=== PATIENT | female | born 1950 | race Caucasian/White ===

== ENCOUNTER 2019-08-24 10:11 | Emergency (ER) | payer OTHER, MEDICAID ==
[~2019-08-24] VITALS: Ht 162.6 cm; Wt 67.6 kg
--- NOTE | 2019-08-24 10:17 | NUR ---
PT WHEELCHAIRED TO BED 3
[2019-08-24 10:21] VITALS: BP 99/60
--- NOTE | 2019-08-24 10:26 | NUR ---
Note undone in EDM - 08/24/19 at 1028 by [email or web address] 69 y/o F bib caregiver. Per caregiver pt was being assisted in shower and pt bumbed head on metal bar in shower. Indentation in middle of forehead noted. Denies LOC. Denies N/V. A&O x1. Vital Signs Stable. Pt at baseline. Caregiver remains at bedside. Allergies: NKA Med hx: CP, intellectual disability, hearing loss, seizures, anemia
--- NOTE | 2019-08-24 11:19 | NUR ---
Dr. Martinez evaluating pt at bedside.
[2019-08-24 11:43] VITALS: BP 100/63
--- NOTE | 2019-08-24 11:43 | NUR ---
Patient discharged with v/s stable. Written and verbal after care instructions given and explained. Patient alert, oriented and verbalized understanding of instructions. Wheel Chair Assisted with by caregiver. All questions addressed prior to discharge. ID band removed. Patient advised to follow up with PMD. Rx of MOTRIN given. Patient educated on indication of medication including possible reaction and side effects. Opportunity to ask questions provided and answered.
== END 2019-08-24 11:43 | disposition home or self-care (01) ==
LOC: MED 10:11
DX: S00.81XA Abrasion of other part of head, initial encounter (principal); W22.8XXA Striking against or struck by other objects, initial encounter; Y92.091 Bathroom in other non-institutional residence as the place of occurrence of the external cause; Y93.89 Activity, other specified; Y99.8 Other external cause status
CPT/HCPCS: 99282

== ENCOUNTER 2021-01-04 19:03 | Inpatient (IN) | payer OTHER, MEDICAID ==
[~2021-01-04] VITALS: Ht 149.9 cm; Wt 64.4 kg
[2021-01-04 19:17] VITALS: BP 142/103
--- NOTE | 2021-01-04 19:17 | NUR ---
TO BED VIA W/C
--- NOTE | 2021-01-04 19:17 | NUR ---
70 Y/O FEMALE PATIENT PRESENTS TO ED WITH CAREGIVER C/O APPETITE CHANGES. PER CAREGIVER, "PT IS USUALLY FEEDING GOOD, BUT SHE HAS NOT BEEN EATING SINCE LUNCH TODAY. SHE HAS APPETITE CHANGES AND WAS A LITTLE NAUSEATED". DENIES V/D; SKIN IS PINK/WARM/DRY; AAOX4 WITH EVEN AND STEADY GAIT; LUNGS CLEAR BL; HR EVEN AND REGULAR; PT DENIES ANY FEVER, CP, SOB, OR COUGH AT THIS TIME; PATIENT STATES PAIN OF 0/10 AT THIS TIME; VSS; PATIENT POSITIONED FOR COMFORT; HOB ELEVATED; BEDRAILS UP X2; BED DOWN. ER MD MADE AWARE OF PT STATUS. NKA PMH: PROFOUND INTELLECTUAL DISABILITY, OSTEOPOROSIS, ANEMIA, CEREBRAL PALSY
[2021-01-04] MEDS ORDERED: NACL 0.9% 1,000 ML IV SCH (19:30)
[2021-01-04] MEDS ORDERED: ONDANSETRON 4 MG/2 ML VIAL IVP ONE (19:30)
[2021-01-04] MEDS ORDERED: cefTRIAXone 1,000 MG in DEXT 5% MINI-BAG PLUS 50 ML IV ONE (19:30)
[2021-01-04] MEDS ORDERED: cefTRIAXone 1,000 MG VIAL ONE (19:36)
--- NOTE | 2021-01-04 20:35 | NUR ---
OBTAINED URINE SAMPLE VIA STRAIGHT CATHETER, AND SENT TO LAB, HANDED TO CPT CHRISTY
[2021-01-04 20:40] LABS: BASOPHILS # (AUTO) 0.1 K/uL (0.00-0.22); BASOPHILS % (AUTO) 0.4 % (0.0-2.0); HEMATOCRIT 47.1 % (36-48); HEMOGLOBIN 15.3 g/dL (12.0-16.0); LYMPHOCYTES # (AUTO) 0.9 K/uL (2.5-16.5); LYMPHOCYTES % (AUTO) 4.7 % (20.5-51.1); MEAN CORPUSCULAR HEMOGLOBIN 27 pg (27-31); MEAN CORPUSCULAR HGB CONC 32 g/dL (33-37); MONOCYTES # (AUTO) 0.8 K/uL (0.8-1.0); MONOCYTES % (AUTO) 4.4 % (1.7-9.3); PLATELET COUNT (AUTO) 235 K/uL (140-450); RED BLOOD CELL COUNT(AUTO) 5.75 MIL/uL (4.20-5.40); RED CELL DISTRIBUTION WIDTH 14.8 % (11.6-13.7); WHITE BLOOD COUNT (AUTO) 18.8 K/uL (4.8-10.8)
--- NOTE | 2021-01-04 20:42 | NUR ---
EKG PERFORMED AT BEDSIDE. EKG READS SINUS TACHYCARDIA @ 100
[2021-01-04 20:47] LABS: ALBUMIN 4.1 g/dL (3.4-5.0); ANION GAP 14.1 (8-16); CARBON DIOXIDE 26.2 mmol/L (21-32); CREATININE 0.7 mg/dL (0.6-1.3); POTASSIUM 4.3 mmol/L (3.5-5.1); TOTAL BILIRUBIN 0.4 mg/dL (0.0-1.0)
[2021-01-04 20:50] LABS: NEUTROPHILS % (AUTO) 90.5 % (42.2-75.2)
--- NOTE | 2021-01-04 20:59 | NUR ---
RECEIVED A CALL ANGELITO SLATER. REGARDING CRITICAL VALUES: LACTIC ACID: 2.4 TROPONIN: 0.075
[2021-01-04 21:28] LABS: APPEARANCE,URINE CLEAR (CLEAR); BILIRUBIN,URINE NEGATIVE (NEGATIVE); BLOOD, URINE TRACE-I (NEGATIVE); COLOR,URINE YELLOW (YELLOW); LEUKOCYTE ESTERASE ,URINE 1+ (NEGATIVE); NITRITE, URINE POSITIVE (NEGATIVE); UGLUCOSE NEGATIVE (NEGATIVE)
[2021-01-04] MEDS ORDERED: FISH100053 PO (21:39)
[2021-01-04] MEDS ORDERED: BISA-213 RC (21:39)
[2021-01-04] MEDS ORDERED: CHLO100S54 (21:39)
[2021-01-04] MEDS ORDERED: OSC500 PO (21:39)
[2021-01-04] MEDS ORDERED: FOS70 PO (21:39)
[2021-01-04] MEDS ORDERED: MAGN400S60 PO (21:39)
[2021-01-04] MEDS ORDERED: ACET325C8 PO (21:39)
[2021-01-04] MEDS ORDERED: MULT-2253 PO (21:39)
[2021-01-04] MEDS ORDERED: EPIN0.154 IM/IV/SUBQ (21:39)
[2021-01-04] MEDS ORDERED: CARB15DR61 OT (21:39)
[2021-01-04] MEDS ORDERED: NA P133N16 RC (21:39)
--- NOTE | 2021-01-04 21:40 | NUR ---
Patient will be admitted to care of DR. ROSS. Admited to TELEMMETRY. Will go to room 112B. Belongings list completed. Report to SYLVIE KARIMI.
[2021-01-04 21:41] LABS: RBC,URINE 0-5 /HPF (0-5)
[2021-01-04 21:45] VITALS: BP 149/86
--- NOTE | 2021-01-04 21:45 | NUR ---
ADMITTED THE PATIENT FROM ER VIA GURNEY. PATIENT AWAKE AND ALERT, ORIENTED TO SELF. PATIENT HAS CEREBRAL PALSY, NON VERBAL. PATIENT NOT IN ANY DISTRESS. CONNECTED THE PATIENT ON AUTO GARAGE MECHANIC SHOWING SINUS TACHYCARDIA ON TELE MONITOR, HR-109. FALL PRECAUTION IMPLEMENTED. BED IN LOW POSITION, SIDE RAILS UP X2, BED ALARM ON. CALL LIGHT WITHIN REACH. WILL CONTINUE POC AND MONITORING.
[2021-01-04] MEDS ORDERED: NON-FORMULARY ITEM (Acetaminophen (Tylenol) 650 MG) PO SCH (23:55)
[2021-01-04] MEDS ORDERED: SODIUM PHOSPHATE 118 ML ENEM RC SCH (23:55)
[2021-01-04] MEDS ORDERED: ACETAMINOPHEN 325 MG TAB PO PRN (23:55)
[2021-01-04] MEDS ORDERED: HYDROcodone/APAP 5/325 MG 1 TAB TAB PO PRN (23:55)
[2021-01-04] MEDS ORDERED: EPINEPHRINE 0.3 MG IM/IV/SUBQ SCH (23:55)
[2021-01-04] MEDS ORDERED: bisacodyL 10 MG SUPP RC SCH (23:55)
[2021-01-04] MEDS ORDERED: ONDANSETRON 4 MG/2 ML VIAL IVP PRN (23:55)
[2021-01-04] MEDS ORDERED: MAGNESIUM HYDROXIDE 2400 MG/30 ML UDC PO SCH (23:55)
[2021-01-04] MEDS ORDERED: LORazepam 2 MG/ML VIAL IVP PRN (23:55)
[2021-01-05] VITALS: BP 137/65
--- NOTE | 2021-01-05 00:55 | NUR ---
PATIENT LACTIC ACID IS 2.8. NOTIFIED DR ROSS OBSTETRICS GYN PHYSICIAN MD AND AWARE. NO FURTHER ORDER GIVEN.
--- NOTE | 2021-01-05 02:00 | NUR ---
PATIENT ASLEEP. VISIBLE CHEST RISE AND FALL NOTED. NOT IN ANY DISTRESS. SAFETY MEASURES IN PLACED.
[2021-01-05 04:00] VITALS: BP 139/71
--- NOTE | 2021-01-05 04:00 | NUR ---
PATIENT VITAL SIGNS STABLE, AFEBRILE, SATING 97% ON RA. NO COMPLAIN OF PAIN AT THIS TIME. SR ON EXTRUSION UTILITY WORKER, HR-95. CALL LIGHT WITHIN REACH.
[2021-01-05 04:46] LABS: CREATINE KINASE MB 1.4 ng/mL (0-3.6)
[2021-01-05 05:10] LABS: BASOPHILS # (AUTO) 0.1 K/uL (0.00-0.22); BASOPHILS % (AUTO) 0.5 % (0.0-2.0); HEMATOCRIT 44.7 % (36-48); HEMOGLOBIN 14.7 g/dL (12.0-16.0); LYMPHOCYTES # (AUTO) 0.7 K/uL (2.5-16.5); MEAN CORPUSCULAR HEMOGLOBIN 27 pg (27-31); MEAN CORPUSCULAR HGB CONC 33 g/dL (33-37); MONOCYTES # (AUTO) 1.4 K/uL (0.8-1.0); MONOCYTES % (AUTO) 8.5 % (1.7-9.3); NEUTROPHILS # (AUTO) 14.1 K/uL (1.8-7.7); PLATELET COUNT (AUTO) 230 K/uL (140-450); RED BLOOD CELL COUNT(AUTO) 5.45 MIL/uL (4.20-5.40); RED CELL DISTRIBUTION WIDTH 14.7 % (11.6-13.7); WHITE BLOOD COUNT (AUTO) 16.3 K/uL (4.8-10.8)
[2021-01-05 05:18] LABS: ANION GAP 13.2 (8-16); CARBON DIOXIDE 25.9 mmol/L (21-32); CREATININE 0.6 mg/dL (0.6-1.3); POTASSIUM 4.1 mmol/L (3.5-5.1)
[2021-01-05 05:33] LABS: CREATINE KINASE MB 1.4 ng/mL (0-3.6)
[2021-01-05 05:52] LABS: LYMPHOCYTES % (AUTO) 4.6 % (20.5-51.1); NEUTROPHILS % (AUTO) 86.4 % (42.2-75.2)
--- NOTE | 2021-01-05 06:28 | NUR ---
PATIENT STABLE. NO ACUTE EVENT THROUGHOUT THE NIGHT. NO COMPLAIN AT THIS TIME. NOT IN ANY DISTRESS. ALL NEEDS ATTENDED. WILL ENDORSE THE PATIENT TO THE ONCOMING RN FOR CONTINUITY OF CARE. CALL LIGHT WITHIN REACH.
--- NOTE | 2021-01-05 07:16 | NUR ---
ENDORSED PATIENT TO DAY SYLVIE OLSON FOR CONTINUITY OF CARE. PATIENT STABLE. SIGNING OFF.
--- NOTE | 2021-01-05 07:21 | NUR ---
RECEIVED BEDSIDE REPORT FROM NIGHTSHIFT NURSE. PT RESTING IN BED. ABLE TO MAKE SOME NEEDS KNOWN. RESPIRATIONS EVEN AND UNLABORED WITH NO SOB OR RESPIRATORY DISTRESS. SKIN WARM AND DRY TO TOUCH. SAFETY MEASURES IN PLACE. WILL CONTINUE TO MONITOR
[2021-01-05 08:00] VITALS: BP 114/52
[2021-01-05] MEDS: CARBAMIDE PEROXIDE 6.5% OT 15 ML BTL OT SCH (08:21)
[2021-01-05] MEDS: CALCIUM CARBONATE 500 MG TAB PO SCH ×2 (08:22→22:37)
[2021-01-05] MEDS: MULTIVITAMIN 1 TAB PO SCH (08:22)
--- NOTE | 2021-01-05 08:35 | NUR ---
ADMINISTERED SCHED MED PRESCRIBED PER MD ORDER. PT TOLERATED WELL. SAFETY MEASURES IN PLACE. WILL CONTINUE TO MONITOR
[2021-01-05] MEDS ORDERED: OMEGA PO SCH (09:00)
[2021-01-05] MEDS ORDERED: NON-FORMULARY ITEM (Multivitamin (Multi-Vitamin Daily) 1 EACH) PO SCH (09:00)
[2021-01-05] MEDS ORDERED: FATTY ACIDS PO SCH (09:00)
[2021-01-05] MEDS ORDERED: FISH OIL PO SCH (09:00)
[2021-01-05] MEDS: NACL 0.9% 1,000 ML IV SCH (09:35)
--- NOTE | 2021-01-05 09:35 | NUR ---
ADMINISTERED SCHED IVF PRESCRIBED PER MD ORDER. PT TOLERATED WELL. SAFETY MEASURES IN PLACE. WILL CONTINUE TO MONITOR
--- NOTE | 2021-01-05 10:15 | NUR ---
RECEIVED CALL FROM [facility] [phone] AND WANTED AN UPDATE ON PATIENT. UPDATE GIVEN. SAFETY MEASURES IN PLACE. WILL CONTINUE TO MONITOR
[2021-01-05 12:00] VITALS: BP 114/43
--- NOTE | 2021-01-05 12:04 | NUR ---
VITAL SIGNS OBTAINED, PT IS STABLE. NO SIGNS OF DISTRESS AT THIS TIME. SAFETY MEASURES IN PLACE. WILL CONTINUE TO MONITOR
--- NOTE | 2021-01-05 14:15 | NUR ---
PLASTIC BOAT BUFFER FROM [employer] [facility] IS HERE TO SEE PATIENT. CALLI [phone]. VISITING PATIENT AT BEDSIDE. PER CALLI, THE PATIENT HAS NURSE AZAEL WHO IS PT PRIMARY NURSE AND TO CALL HER PRIOR TO DC [phone]. SAFETY MEASURES IN PLACE, WILL CONTINUE TO MONITOR
[2021-01-05] MEDS ORDERED: MAGNESIUM HYDROXIDE 2400 MG/30 ML UDC PO PRN (14:45)
[2021-01-05] MEDS ORDERED: bisacodyL 10 MG SUPP RC PRN (14:45)
[2021-01-05] MEDS ORDERED: SODIUM PHOSPHATE 118 ML ENEM RC PRN (14:45)
[2021-01-05 16:00] VITALS: BP 97/45
--- NOTE | 2021-01-05 16:04 | NUR ---
ASSISTED ESTIMATOR WITH TURNING AND REPOSITIONING PATIENT. PT TOLERATED FAIRLY. SAFETY MEASURES IN PLACE. WILL CONTINUE TO MONITOR
[2021-01-05] MEDS: FAMOTIDINE 20 MG/2 ML VIAL IV SCH (17:50)
--- NOTE | 2021-01-05 18:15 | NUR ---
FED PATIENT DINNER. PT TOLERATED WELL. PATIENT ATE 100% OF DINNER. NO DISTRESS AT THIS TIME. WILL CONTINUE TO MONITOR
--- NOTE | 2021-01-05 19:25 | NUR ---
ENDORSED TO NIGHTSHIFT NURSE AT BEDSIDE FOR CONTINUITY OF CARE.
--- NOTE | 2021-01-05 19:26 | NUR ---
RECEIVED BEDSIDE ENDORSEMENT FROM AM SHIFT RN. PATIENT IS AOX1, HX OF DEV'T. DELAYED, ON ROOM AIR, NO DISTRESS, IVF INFUSING, SOMEONE IS IN THE PT ROOM DOING SOME TEST AT THIS TIME, SAFETY MEASURES IN PLACE, PLAN OF CARE DISCUSSED, CALL LIGHT WITHIN REACH, WILL MONITOR.
[2021-01-05 20:00] VITALS: BP 96/48
[2021-01-05] MEDS ORDERED: CHLORHEXIDINE GLUCONATE SCH (21:00)
[2021-01-06] VITALS: BP 98/50
[2021-01-06] MEDS: NACL 0.9% 1,000 ML IV SCH ×2 (03:25→18:23)
[2021-01-06 04:00] VITALS: BP 100/56
[2021-01-06 05:16] LABS: BASOPHILS # (AUTO) 0.1 K/uL (0.00-0.22); BASOPHILS % (AUTO) 0.6 % (0.0-2.0); EOSINOPHILS # (AUTO) 0.1 K/uL (0-0.4); EOSINOPHILS % (AUTO) 1.5 % (0.0-4.0); HEMATOCRIT 38.2 % (36-48); HEMOGLOBIN 12.3 g/dL (12.0-16.0); LYMPHOCYTES # (AUTO) 1.7 K/uL (2.5-16.5); LYMPHOCYTES % (AUTO) 17.5 % (20.5-51.1); MEAN CORPUSCULAR HEMOGLOBIN 27 pg (27-31); MEAN CORPUSCULAR HGB CONC 32 g/dL (33-37); MEAN CORPUSCULAR VOLUME 83.2 fL (80-94); MONOCYTES % (AUTO) 10.6 % (1.7-9.3); NEUTROPHILS # (AUTO) 6.7 K/uL (1.8-7.7); NEUTROPHILS % (AUTO) 69.8 % (42.2-75.2); PLATELET COUNT (AUTO) 199 K/uL (140-450); RED BLOOD CELL COUNT(AUTO) 4.59 MIL/uL (4.20-5.40); RED CELL DISTRIBUTION WIDTH 14.6 % (11.6-13.7); WHITE BLOOD COUNT (AUTO) 9.7 K/uL (4.8-10.8)
[2021-01-06 05:33] LABS: ANION GAP 10.7 (8-16); CARBON DIOXIDE 27.2 mmol/L (21-32); CREATININE 0.5 mg/dL (0.6-1.3); POTASSIUM 3.9 mmol/L (3.5-5.1)
--- NOTE | 2021-01-06 07:26 | NUR ---
PATIENT HAS BEEN SCREENED AND CATEGORIZED LOW NUTRITION RISK. PATIENT WILL BE SEEN WITHIN 7 DAYS OF ADMISSION. 01/12/21 DAVE MENSAH MS, RDN
--- NOTE | 2021-01-06 07:30 | NUR ---
NO ACUTE EVENTS OVERNIGHT. NO SOB, NO DISTRESS. CALL LIGHT WITHIN REACH. KEPT COMFORTABLE.
--- NOTE | 2021-01-06 07:55 | NUR ---
PATIENT STABLE, KEPT COMFORTABLE, BEDSIDE ENDORSEMENT GIVEN TO AM SHIFT RN FOR CONTINUITY OF CARE.
[2021-01-06 08:00] VITALS: BP 104/55
[2021-01-06] MEDS: MULTIVITAMIN 1 TAB PO SCH (09:23)
[2021-01-06] MEDS: CALCIUM CARBONATE 500 MG TAB PO SCH ×2 (09:24→20:58)
--- NOTE | 2021-01-06 09:26 | NUR ---
ADMINISTERED AM MEDS WITH APPLE SAUCE, PATIENT TOLERATED WELL. AWAITING FOR PHARMACY TO DELIVER THE EYE DROP, [facility] NOTIFIED. PATIENT AWAKE AND RESTING ON BED. FLACC 0. RESPIRATION EVEN AND UNLABORED ON 4 LPM VIA NASAL CANNULA. NO SIGNS OF ACUTE DISTRESS NOTED. SAFETY MEASURES IN PLACE. BED IN LOW POSITION, AND CALL LIGHT WITHIN REACH, FALL RISK PROTOCOL IN PLACE.
[2021-01-06] MEDS: CARBAMIDE PEROXIDE 6.5% OT 15 ML BTL OT SCH (10:08)
--- NOTE | 2021-01-06 11:15 | NUR ---
PATIENT IS RESTING ON BED, AROUSABLE TO VOICE, RESPIRATION EVEN, UNLABORED ON RA. NO SIGNS OF ACUTE DISTRESS NOTED. SAFETY MEASURES IN PLACE.
[2021-01-06 12:00] VITALS: BP 116/59
--- NOTE | 2021-01-06 13:17 | NUR ---
PATIENT AWAKE AND RESTING ON BED. FLACC 0. NO SIGNS OF ACUTE DISTRESS NOTED. SAFETY MEASURES IN PLACE.
[2021-01-06 16:00] VITALS: BP 118/71
[2021-01-06] MEDS: FAMOTIDINE 20 MG/2 ML VIAL IV SCH (18:23)
--- NOTE | 2021-01-06 18:23 | NUR ---
SCHEDULED MED ADMINISTERED. PIT SHOVELER IS AT BEDSIDE ASSISTING PATIENT TO EAT DINNER. NO SIGNS OF ACUTE DISTRESS NOTED. SAFETY MEASURES IN PLACE.
--- NOTE | 2021-01-06 19:30 | NUR ---
ENDORSED PATIENT TO ROOF TRUSS MACHINE TENDER NURSE KATHERIN FOR CONTINUITY OF CARE. PATIENT IS RESTING ON BED. PATIENT IS IN STABLE CONDITION.
--- NOTE | 2021-01-06 19:31 | NUR ---
RECEIVED BEDSIDE ENDORSEMENT FROM AM RN, PATIENT WAS AAO X1 TO NAME, PT ON ROOM AIR, NO SOB, FLACC 0, IV FLUIDS INFUSING ON LFA, PATENT/INTACT, SAFETY MEASURES IMPLEMENTED, PLAN OF CARE DISCUSSED, WILL CONTINUE TO MONITOR AND CALL LIGHT WITHIN REACH.
[2021-01-06 20:00] VITALS: BP 98/67
--- NOTE | 2021-01-06 21:02 | NUR ---
PATIENT IS AWAKE, HOB ELEVATED, NO DISTRESS, FLACC 0. DUE MEDS GIVEN ORDERED, TOLERATED WELL, NO A/R NOTED, WILL MONITOR, PERINEAL CARE RENDERED, KEPT COMFORTABLE, CALL LIGHT WITHIN REACH.
[2021-01-07] VITALS: BP 115/52
--- NOTE | 2021-01-07 | NUR ---
PT IS RESTING ON THE BED, FLACC 0, CURRENTLY IN ROOM AIR, KEPT COMFORTABLE, AND CALL LIGHT WITHIN REACH.
[2021-01-07 04:00] VITALS: BP 123/51
[2021-01-07 07:02] LABS: BASOPHILS # (AUTO) 0.1 K/uL (0.00-0.22); BASOPHILS % (AUTO) 0.7 % (0.0-2.0); EOSINOPHILS # (AUTO) 0.2 K/uL (0-0.4); EOSINOPHILS % (AUTO) 3.1 % (0.0-4.0); HEMATOCRIT 38.4 % (36-48); HEMOGLOBIN 12.4 g/dL (12.0-16.0); LYMPHOCYTES # (AUTO) 1.7 K/uL (2.5-16.5); LYMPHOCYTES % (AUTO) 22.2 % (20.5-51.1); MEAN CORPUSCULAR HEMOGLOBIN 27 pg (27-31); MEAN CORPUSCULAR HGB CONC 32 g/dL (33-37); MEAN CORPUSCULAR VOLUME 82.5 fL (80-94); MONOCYTES % (AUTO) 12.6 % (1.7-9.3); NEUTROPHILS # (AUTO) 4.7 K/uL (1.8-7.7); NEUTROPHILS % (AUTO) 61.4 % (42.2-75.2); PLATELET COUNT (AUTO) 200 K/uL (140-450); RED BLOOD CELL COUNT(AUTO) 4.66 MIL/uL (4.20-5.40); RED CELL DISTRIBUTION WIDTH 14.5 % (11.6-13.7); WHITE BLOOD COUNT (AUTO) 7.7 K/uL (4.8-10.8)
[2021-01-07 07:13] LABS: ANION GAP 11.6 (8-16); CARBON DIOXIDE 26.1 mmol/L (21-32); CREATININE 0.6 mg/dL (0.6-1.3); POTASSIUM 3.7 mmol/L (3.5-5.1)
--- NOTE | 2021-01-07 07:15 | NUR ---
PATIENT STABLE, NO DISTRESS, FLACC 0, KEPT COMFORTABLE, ALL NEEDS ATTENDED, CALL LIGHT WITHIN REACH. BEDSIDE ENDORSEMENT GIVEN TO AM SHIFT RN.
--- NOTE | 2021-01-07 07:35 | NUR ---
BEDSIDE REPORT RECEIVED FROM LEARNING DISABILITIES RESOURCE TEACHER NURSE, PT AWAKE RESTING IN BED QUIETLY, PT APHASIC, RESPONDS TO HER NAME, PULLS AWAY FROM TOUCH, PT UNABLE TO MAKE NEEDS KNOWN AT BASELINE PER REPORT, RESP EVEN UNLABORED ON ROOM AIR, SKIN WARM DRY COLOR WNL, CAP REFILL < 3 SEC, FOUR H CLUB AGENT IN PLACE, IVF NS AT 60ML/HR TO LEFT FA 20G, SITE WNL, ABD SOFT NON DISTENDED, PLAN OF CARE REVIEWED, NO IMMEDIATE NEEDS AT THIS TIME, ALL SAFETY MEASURES IN PLACE, WILL CONTINUE TO MONITOR.
[2021-01-07 08:00] VITALS: BP 106/50
--- NOTE | 2021-01-07 08:29 | NUR ---
PUREED BREAKFAST WITH FULL ASSIST FEEDING BY VERIFYING SPECIALIST, 100% CONSUMED.
[2021-01-07] MEDS: CALCIUM CARBONATE 500 MG TAB PO SCH ×2 (08:45→20:04)
[2021-01-07] MEDS: MULTIVITAMIN 1 TAB PO SCH (08:46)
[2021-01-07] MEDS: CARBAMIDE PEROXIDE 6.5% OT 15 ML BTL OT SCH (08:46)
[2021-01-07] MEDS ORDERED: CRUSHER, PILL MC ONE (08:49)
--- NOTE | 2021-01-07 08:58 | NUR ---
AM MEDS GIVEN CRUSHED WITH APPLESAUSE, PT AMBREEN WELL.
[2021-01-07] MEDS: NACL 0.9% 1,000 ML IV SCH (11:58)
--- NOTE | 2021-01-07 12:30 | NUR ---
LUNCH WITH ASSIST, PT WITH GOOD APPETITE
--- NOTE | 2021-01-07 14:30 | NUR ---
PT SITTING UP IN BED RESTING QUIETLY IN NO ACUTE DISTRESS
[2021-01-07 16:00] VITALS: BP 117/49
--- NOTE | 2021-01-07 16:53 | NUR ---
SYLVIE ADDISON FROM [facility] CALLED FOR UPDATE.
--- NOTE | 2021-01-07 17:30 | NUR ---
TELE BOX REMOVED PER DOWNGRADE ORDER
[2021-01-07] MEDS: FAMOTIDINE 20 MG/2 ML VIAL IV SCH (18:00)
--- NOTE | 2021-01-07 18:02 | NUR ---
PEPCID GIVEN IVP PER ORDER, IV SITE WNL.
--- NOTE | 2021-01-07 18:32 | NUR ---
DR Mahesh LR AT BEDSIDE.
--- NOTE | 2021-01-07 19:25 | NUR ---
REPORT GIVEN TO SULFUR BURNER NURSE
--- NOTE | 2021-01-07 19:26 | NUR ---
RECEIVED BEDSIDE ENDORSEMENT FROM AM SHIFT RN. PATIENT IS AWAKE, ALERT, ORIENTED TO NAME WHEN YOU CALL, NON VERBAL, IVF INFUSING, SAFETY MEASURES IN PLACE, PLAN OF CARE DISCUSSED, KEPT COMFORTABLE, WILL MONITOR, CALL LIGHT WITHIN REACH.
[2021-01-07 20:00] VITALS: BP 136/51
--- NOTE | 2021-01-07 20:16 | NUR ---
PATIENT IS AWAKE, HOB ELEVATED, DUE MEDS GIVEN ORDERED, TOLERATED WELL, NO A/R NOTED, WILL MONITOR, CALL LIGHT WITHIN REACH.
--- NOTE | 2021-01-07 23:58 | NUR ---
PATIENT IS ASLEEP, RESPIRATION EVEN AND UNLABORED, WILL MONITOR, CALL LIGHT WITHIN REACH.
--- NOTE | 2021-01-08 00:16 | NUR ---
PERINEAL CARE RENDERED, KEPT CLEAN, DRY AND COMFORTABLE, REPOSITIONED, CALL LIGHT WITHIN REACH.
--- NOTE | 2021-01-08 02:04 | NUR ---
PATIENT IS SLEEPING, NOTED CHEST RISE, REPOSITIONED, CALL LIGHT WITHIN REACH.
[2021-01-08] MEDS: NACL 0.9% 1,000 ML IV SCH (03:51)
--- NOTE | 2021-01-08 03:51 | NUR ---
IVF FINISHED AND REPLACED, PERINEAL CARE RENDERED, REPOSITIONED, KEPT COMFORTABLE, CALL LIGHT WITHIN REACH.
[2021-01-08 04:00] VITALS: BP 109/54
[2021-01-08 06:23] LABS: BASOPHILS % (AUTO) 0.6 % (0.0-2.0); EOSINOPHILS # (AUTO) 0.2 K/uL (0-0.4); EOSINOPHILS % (AUTO) 2.8 % (0.0-4.0); HEMATOCRIT 39.9 % (36-48); LYMPHOCYTES # (AUTO) 1.6 K/uL (2.5-16.5); LYMPHOCYTES % (AUTO) 20.8 % (20.5-51.1); MEAN CORPUSCULAR HEMOGLOBIN 27 pg (27-31); MEAN CORPUSCULAR HGB CONC 33 g/dL (33-37); MEAN CORPUSCULAR VOLUME 82.9 fL (80-94); MONOCYTES # (AUTO) 0.8 K/uL (0.8-1.0); MONOCYTES % (AUTO) 10.2 % (1.7-9.3); NEUTROPHILS # (AUTO) 5.2 K/uL (1.8-7.7); NEUTROPHILS % (AUTO) 65.6 % (42.2-75.2); PLATELET COUNT (AUTO) 223 K/uL (140-450); RED BLOOD CELL COUNT(AUTO) 4.82 MIL/uL (4.20-5.40); RED CELL DISTRIBUTION WIDTH 14.6 % (11.6-13.7); WHITE BLOOD COUNT (AUTO) 7.9 K/uL (4.8-10.8)
[2021-01-08 06:38] LABS: ALBUMIN 2.9 g/dL (3.4-5.0); ANION GAP 11.9 (8-16); CARBON DIOXIDE 25.5 mmol/L (21-32); CREATININE 0.6 mg/dL (0.6-1.3); POTASSIUM 3.4 mmol/L (3.5-5.1); TOTAL BILIRUBIN 0.2 mg/dL (0.0-1.0)
--- NOTE | 2021-01-08 07:03 | NUR ---
PATIENT STABLE, NO DISTRESS, ALL NEEDS ATTENDED, KEPT COMFORTABLE, SAFETY MEASURES IN PLACE, CALL LIGHT WITHIN REACH.
--- NOTE | 2021-01-08 07:25 | NUR ---
RECEIVED REPORT FROM NIGHT NURSE. INTRODUCED MYSELF TO PT AND UPDATED WHITE BOARD WITH GOALS. REVIEWED PLAN OF CARE. SAFETY PROTOCOLS ARE IN PLACE. WILL CONTINUE PLAN OF CARE. CALL LIGHT IS WITHIN REACH WILL CONTINUE TO MONITOR.
[2021-01-08] MEDS: CARBAMIDE PEROXIDE 6.5% OT 15 ML BTL OT SCH (09:00)
[2021-01-08] MEDS: CALCIUM CARBONATE 500 MG TAB PO SCH (09:00)
[2021-01-08] MEDS: MULTIVITAMIN 1 TAB PO SCH (09:00)
--- NOTE | 2021-01-08 10:11 | NUR ---
ADMINISTERED SCHEDULED MEDICATIONS PER MD ORDER. NO DISTRESS NOTED. CALL LIGHT IS WITHIN REACH. SAFETY PRECAUTIONS IN PLACE. WILL CONTINUE TO MONITOR.
--- NOTE | 2021-01-08 12:15 | NUR ---
RECEIVED A CALL FROM AZAEL/ NURSE OF [facility] [place]. INFORMED AZAEL PT IS GOING TO BE DISCHARGE TODAY. UPDATED HER PATIENT'S CONDITION AND ECHO REPORT. PER AZAEL, SHE WILL CALL THEIR [facility] TO ARRANGE TRANSPORTATION. WILL CALL BACK.
--- NOTE | 2021-01-08 13:52 | NUR ---
SPOKE WITH AZAEL/NURSE OF [facility], PER AZAEL, THEY WERE NOT ABLE TO ARRANGE TRANSPORTATION AT THIS TIME SINCE THEY HAVE ANOTHER CLIENT PENDING PROCEDURE. PER AZAEL, SHE WILL CALL BACK AGAIN AFTER SHE CONFIRM WITH THEIR CUSTOM HOME INSTALLER.
--- NOTE | 2021-01-08 14:09 | NUR ---
01/08/21 RD INITIAL ASSESSMENT COMPLETED PLEASE REFER TO NUTRITION ASSESSMENT UNDER CARE ACTIVITY FOR ESTIMATED NUTRITIONAL NEEDS. 1. CONTINUE CARDIAC PUREE DIET TOLERATE 2. PROVIDE SHREDDED FILLER CIGAR MAKER MACHINE WITH MEALS 3. RD TO FOLLOW-UP 3-5 DAYS, MODERATE RISK KOKO TABOR RD
--- NOTE | 2021-01-08 15:07 | NUR ---
PATIENT BEEN PICKED UP BY ALISHA/ [employer] PROTECTOR OF [facility]. ALL BELONGINGS TAKEN, DISCHARGE PROTOCOL FOLLOWED. PATIENT IN STABLE CONDITION.
== END 2021-01-08 15:10 | disposition home or self-care (01) | DRG 871 ==
LOC: MED 19:03 → MTU 21:05
PROVIDERS: ADMIT Preventive Medicine Preventive Medicine/Occupational Environmental Medicine; ATTEND Preventive Medicine Preventive Medicine/Occupational Environmental Medicine
DX: A41.9 Sepsis, unspecified organism (principal); I21.A1 Myocardial infarction type 2; N39.0 Urinary tract infection, site not specified; F79 Unspecified intellectual disabilities; G40.909 Epilepsy, unspecified, not intractable, without status epilepticus; G80.9 Cerebral palsy, unspecified; D63.8 Anemia in other chronic diseases classified elsewhere; M81.0 Age-related osteoporosis without current pathological fracture; R53.81 Other malaise
CPT/HCPCS: 36415; 71045; 80048; 80053; 81001; 82550; 82553; 83605; 83880; 84484; 85025; 85651; 86140; 87040; 87081; 87086; 93005; 96365; 96375; 99285; J0696; J2405; J3490; J7060

== ENCOUNTER 2021-08-12 16:14 | Emergency (ER) | payer OTHER, MEDICAID ==
[~2021-08-12] VITALS: Ht 162.6 cm; Wt 63.0 kg
[~2021-08-12 16:14] MED LIST: ACET325C8 PO; BISA-213 RC; CARB15DR61 OT; CHLO100S54; EPIN0.154 IM/IV/SUBQ; FISH100053 PO; FOS70 PO; MAGN400S60 PO; MULT-2253 PO; NA P133N16 RC; OSC500 PO
[2021-08-12 16:20] VITALS: BP 132/93
--- NOTE | 2021-08-12 16:31 | NUR ---
BIB [facility] FROM [facility] FOR FEET WOUND CHECK. C/PO BI WOUND BOTH FOOT X 3 DAYS. PMH: ANEMIA, OSTIOPOROSIS, PROFOUND INTECTUAL DISABILITY, HEMORRHOIDS, SEIZURE DISOEDER, CP, ATOPIC DERMATITISACIAL HEMAGIOMA, CERVICAL POLYPS, NON VERBAL, MOD HEARING LOSS, HYDROCELE
[2021-08-12 16:49] VITALS: BP 132/93
--- NOTE | 2021-08-12 16:49 | NUR ---
Patient discharged with v/s stable. Written and verbal after care instructions ABOUT CELLULITIS AND PRESSURE INJURY given and explained. Patient verbalized understanding. Wheel Chair Assisted with by caregiver. All questions addressed prior to discharge. Advised to follow up with PMD.
== END 2021-08-12 16:49 | disposition home or self-care (01) ==
LOC: MED 16:14
DX: L97.519 Non-pressure chronic ulcer of other part of right foot with unspecified severity (principal); L97.529 Non-pressure chronic ulcer of other part of left foot with unspecified severity
CPT/HCPCS: 99282

== ENCOUNTER 2021-09-18 16:03 | Emergency (ER) | payer OTHER, MEDICAID ==
[~2021-09-18] VITALS: Ht 162.6 cm; Wt 64.9 kg
[2021-09-18 16:27] VITALS: BP 150/91
--- NOTE | 2021-09-18 17:41 | NUR ---
pt w/c assisted to er bed 7
--- NOTE | 2021-09-18 18:00 | NUR ---
71 y/o female bib caregiver from [facility] for ER referral of bilateral leg wound. Caregiver at bedside states pt PCP wants to r/o infection for wound on bilateral lower legs for 3 weeks. Patient noted with open wound to bilateral lateral aspect of ankles. No bleeding noted; no redness/swelling/warmth noted to site. Caregiver states no medications prior to arrival. No fever noted; pt on environmental monitoring technician showing HR 122. T 98.4 (temporal). Bed locked in lowest position, side rails x 2. Adi (caregiver) remains at bedside. pmh: pid, anemia, osteoporosis, seizure, cerebral palsy, hemorrhoids, constipation allergy: haloperidol, sulfa med: fosamax, famotidine, tylenol, dulcolax, vitamins
--- NOTE | 2021-09-18 18:30 | NUR ---
Caregiver reports Amoxicillin 14 day treatment completed 2 days ago.
--- NOTE | 2021-09-18 19:14 | NUR ---
RAD at bedside
--- NOTE | 2021-09-18 19:16 | NUR ---
Report and transfer of care endorsed to IRENA Delgado and IRENA Philip.
[2021-09-18 20:20] VITALS: BP 132/89
--- NOTE | 2021-09-18 20:20 | NUR ---
Patient discharged with v/s stable. Written and verbal after care instructions given and explained. Patient verbalized understanding. Ambulatory with steady gait. All questions addressed prior to discharge. Advised to follow up with PMD. Addendum: 09/18/21 at 4 by ALVAREZ Patient discharged with v/s stable. Written and verbal after care instructions given and explained. Patient verbalized understanding. Wheel Chair Assisted with by caregiver. All questions addressed prior to discharge. Advised to follow up with PMD.
== END 2021-09-18 20:20 | disposition home or self-care (01) ==
LOC: MED 16:03
DX: L03.031 Cellulitis of right toe (principal); Z88.5 Allergy status to narcotic agent; Z79.899 Other long term (current) drug therapy
CPT/HCPCS: 73630; 99284

== ENCOUNTER 2021-10-17 16:12 | Emergency (ER) | payer OTHER, MEDICAID ==
[~2021-10-17] VITALS: Ht 162.6 cm; Wt 64.9 kg
[2021-10-17 16:19] VITALS: BP 124/107
--- NOTE | 2021-10-17 16:28 | NUR ---
Patient wheechair assisted to bed 4.
[2021-10-17 19:13] VITALS: BP 124/107
--- NOTE | 2021-10-17 19:16 | NUR ---
Patient discharged with v/s stable. Written and verbal after care instructions given and explained. Patient alert, oriented and verbalized understanding of instructions. Wheel Chair Assisted with by caregiver. All questions addressed prior to discharge. ID band removed. Patient advised to follow up with PMD. NO Rx given. Patient educated on indication of medication including possible reaction and side effects. Opportunity to ask questions provided and answered. CAREGIVER GEORGE
== END 2021-10-17 19:12 | disposition home or self-care (01) ==
LOC: MED 16:12
DX: Z12.39 Encounter for other screening for malignant neoplasm of breast (principal); N64.4 Mastodynia; Z88.5 Allergy status to narcotic agent; Z79.899 Other long term (current) drug therapy
CPT/HCPCS: 76641; 99284; Q0092

== ENCOUNTER 2023-03-30 11:13 | Inpatient (IN) | payer OTHER, MEDICAID ==
[2023-03-30] VITALS (9 sets, daily range): BP systolic 94–130; BP diastolic 41–56; PULSE 55–70; RESP 14–19; TEMP 97.1–98.6; O2SAT 96–100
[~2023-03-30] VITALS: Ht 157.5 cm; Wt 65.8 kg
[2023-03-30] MEDS ORDERED: NACL 0.9% 500 ML IV SCH (11:15)
[2023-03-30 12:14] LABS: BASOPHILS % (AUTO) 0.6 % (0.0-2.0); EOSINOPHILS # (AUTO) 0.1 K/uL (0-0.4); EOSINOPHILS % (AUTO) 1.8 % (0.0-4.0); HEMATOCRIT 40.1 % (36-48); HEMOGLOBIN 13.2 g/dL (12.0-16.0); LYMPHOCYTES # (AUTO) 1.7 K/uL (2.5-16.5); LYMPHOCYTES % (AUTO) 26.3 % (20.5-51.1); MEAN CORPUSCULAR HEMOGLOBIN 27 pg (27-31); MEAN CORPUSCULAR HGB CONC 33 g/dL (33-37); MEAN CORPUSCULAR VOLUME 82.8 fL (80-94); MONOCYTES # (AUTO) 0.6 K/uL (0.8-1.0); MONOCYTES % (AUTO) 8.5 % (1.7-9.3); NEUTROPHILS # (AUTO) 4.1 K/uL (1.8-7.7); NEUTROPHILS % (AUTO) 62.8 % (42.2-75.2); PLATELET COUNT (AUTO) 246 K/uL (140-450); RED BLOOD CELL COUNT(AUTO) 4.84 MIL/uL (4.20-5.40); RED CELL DISTRIBUTION WIDTH 14.9 % (11.6-13.7); WHITE BLOOD COUNT (AUTO) 6.5 K/uL (4.8-10.8)
[2023-03-30 12:29] LABS: CREATINE KINASE, TOTAL 28 U/L (26-192)
[2023-03-30 12:30] LABS: BLOOD GAS HCO3 23.5 mmol/L (22-26); BLOOD GAS PCO2 38.7 mmHg (35-45); BLOOD GAS PH 7.402 (7.35-7.45); BLOOD GAS PO2 142.4 mmHg (75-100)
[2023-03-30 12:30] LABS: ALANINE AMINOTRANSFERASE 14 U/L (12-78); ALKALINE PHOSPHATASE 95 U/L (50-136); ANION GAP 8.2 (8-16); ASPARTATE AMINOTRANSFERASE 11 U/L (15-37); CALCIUM 9.5 mg/dL (8.5-10.1); CARBON DIOXIDE 30.5 mmol/L (21-32); CHLORIDE 102 mmol/L (98-107); CREATININE 0.5 mg/dL (0.6-1.3); GLUCOSE 109 mg/dL (74-106); INR 0.9 (0.8-1.2); PARTIAL THROMBOPLASTIN TIME 24.1 secs (22-35.6); POTASSIUM 3.7 mmol/L (3.5-5.1); PROTHROMBIN TIME 9.4 secs (10.8-13.4); SODIUM SERUM 137 mmol/L (136-145); TOTAL BILIRUBIN 0.2 mg/dL (0.0-1.0); TOTAL PROTEIN, SERUM 6.7 g/dL (6.4-8.2); UREA NITROGEN, BLOOD 15 mg/dL (7-18)
[2023-03-30 12:31] LABS: BLOOD GAS O2 SAT% 98.8 % (92.0-98.5)
[2023-03-30 12:33] LABS: LACTIC ACID 0.9 mmol/L (0.4-2.0)
[2023-03-30] MEDS ORDERED: PIPERACILLIN/TAZOBACTAM 3.375 GM in DEXTROSE 5% 50 ML IV ONE (13:00)
[2023-03-30] MEDS ORDERED: PIPERACILLIN/TAZOBACTAM 3.375 GM VIAL IV ONE (13:03)
[2023-03-30] MEDS ORDERED: MORPHINE SULFATE 2 MG/ML SYR IVP PRN (13:35)
[2023-03-30] MEDS ORDERED: ALBUTEROL 0.083% 2.5 MG/3 ML NEBU INH PRN (13:35)
[2023-03-30] MEDS ORDERED: ONDANSETRON 4 MG/2 ML VIAL IVP PRN (13:35)
[2023-03-30] MEDS ORDERED: DEXT 5% / NACL 0.9% 500 ML IV SCH (13:35)
[2023-03-30] MEDS ORDERED: LORazepam 2 MG/ML VIAL IVP PRN (13:35)
[2023-03-30 13:56] LABS: APPEARANCE,URINE CLEAR (CLEAR); BILIRUBIN,URINE NEGATIVE (NEGATIVE); BLOOD, URINE NEGATIVE (NEGATIVE); COLOR,URINE YELLOW (YELLOW); LEUKOCYTE ESTERASE ,URINE 1+ (NEGATIVE); NITRITE, URINE NEGATIVE (NEGATIVE); PH,URINE 6.5 (5.0-9.0); PROTEIN,URINE NEGATIVE (NEGATIVE); UGLUCOSE NEGATIVE (NEGATIVE); UROBILINOGEN,URINE 0.2 EU/dL (0.2 - 1)
[2023-03-30 14:10] LABS: RBC,URINE 0-5 /HPF (0-5); WBC,URINE 0-5 /HPF (0-5)
[2023-03-30 14:11] LABS: BACTERIA,URINE OCCASSIONAL /HPF (None Seen); SQUAMOUS EPITHELIAL CELL,UR 0-3 (FEW) /LPF (0-3 (FEW))
[2023-03-30] MEDS ORDERED: ACETAMINOPHEN 650 MG/20.3 ML UDC PO PRN (16:35)
[2023-03-30] MEDS: DEXT 5% / NACL 0.9% 1,000 ML IV SCH (17:43)
[2023-03-30] MEDS: AZITHROMYCIN 500 MG in DEXTROSE 5% 250 ML IV SCH (18:38)
[2023-03-30] MEDS: IPRATROPIUM 0.02% 0.5 MG/2.5 ML NEBU INH SCH (19:32)
[2023-03-30 19:41] LABS: FLU A ANTIGEN negative (NEGATIVE); FLU B ANTIGEN NEGATIVE (NEGATIVE)
[2023-03-31] VITALS (11 sets, daily range): BP systolic 114–131; BP diastolic 49–96; PULSE 51–106; RESP 14–24; TEMP 97.2–98.5; O2SAT 94–100
[2023-03-31] MEDS: IPRATROPIUM 0.02% 0.5 MG/2.5 ML NEBU INH SCH ×4 (00:59→19:21)
[2023-03-31 06:09] LABS: BASOPHILS # (AUTO) 0.1 K/uL (0.00-0.22); BASOPHILS % (AUTO) 1.2 % (0.0-2.0); EOSINOPHILS # (AUTO) 0.3 K/uL (0-0.4); EOSINOPHILS % (AUTO) 4.5 % (0.0-4.0); HEMATOCRIT 41.4 % (36-48); HEMOGLOBIN 13.6 g/dL (12.0-16.0); LYMPHOCYTES # (AUTO) 1.6 K/uL (2.5-16.5); LYMPHOCYTES % (AUTO) 23.9 % (20.5-51.1); MEAN CORPUSCULAR HEMOGLOBIN 27 pg (27-31); MEAN CORPUSCULAR HGB CONC 33 g/dL (33-37); MEAN CORPUSCULAR VOLUME 83.3 fL (80-94); MONOCYTES # (AUTO) 0.6 K/uL (0.8-1.0); MONOCYTES % (AUTO) 9.5 % (1.7-9.3); NEUTROPHILS % (AUTO) 60.9 % (42.2-75.2); PLATELET COUNT (AUTO) 241 K/uL (140-450); RED BLOOD CELL COUNT(AUTO) 4.97 MIL/uL (4.20-5.40); RED CELL DISTRIBUTION WIDTH 15.2 % (11.6-13.7); WHITE BLOOD COUNT (AUTO) 6.6 K/uL (4.8-10.8)
[2023-03-31 06:13] LABS: ANION GAP 6.8 (8-16); CALCIUM 9.6 mg/dL (8.5-10.1); CARBON DIOXIDE 30.9 mmol/L (21-32); CHLORIDE 105 mmol/L (98-107); CREATININE 0.5 mg/dL (0.6-1.3); GLUCOSE 89 mg/dL (74-106); POTASSIUM 3.7 mmol/L (3.5-5.1); SODIUM SERUM 139 mmol/L (136-145); UREA NITROGEN, BLOOD 8 mg/dL (7-18)
[2023-03-31] MEDS: DEXT 5% / NACL 0.9% 1,000 ML IV SCH (06:31)
[2023-03-31] MEDS: ENOXAPARIN 40 MG/0.4 ML SYR SUBQ SCH (08:25)
[2023-03-31] MEDS ORDERED: HYDROCOLLOID DRESSING TP SCH (13:00)
[2023-03-31] MEDS ORDERED: HYDRAGUARD CREAM TP PRN (13:55)
[2023-03-31] MEDS ORDERED: FOAM DRESSING TP PRN (13:55)
[2023-03-31] MEDS: AZITHROMYCIN 500 MG in DEXTROSE 5% 250 ML IV SCH (16:58)
[2023-03-31] MEDS: DOCUSATE SODIUM 100 MG GELCAP PO SCH (21:00)
[2023-04-01] VITALS (8 sets, daily range): BP systolic 100–121; BP diastolic 45–98; PULSE 73–90; RESP 18–20; TEMP 96.3–97.7; O2SAT 94–99
[2023-04-01] MEDS: IPRATROPIUM 0.02% 0.5 MG/2.5 ML NEBU INH SCH ×3 (00:56→13:35)
[2023-04-01] MEDS: HYDRAGUARD CREAM TP SCH ×2 (01:08→13:15)
[2023-04-01 06:40] LABS: BASOPHILS % (AUTO) 0.7 % (0.0-2.0); EOSINOPHILS # (AUTO) 0.1 K/uL (0-0.4); HEMATOCRIT 38.7 % (36-48); HEMOGLOBIN 12.7 g/dL (12.0-16.0); LYMPHOCYTES # (AUTO) 1.7 K/uL (2.5-16.5); LYMPHOCYTES % (AUTO) 24.2 % (20.5-51.1); MEAN CORPUSCULAR HEMOGLOBIN 27 pg (27-31); MEAN CORPUSCULAR HGB CONC 33 g/dL (33-37); MONOCYTES # (AUTO) 0.6 K/uL (0.8-1.0); MONOCYTES % (AUTO) 8.4 % (1.7-9.3); NEUTROPHILS # (AUTO) 4.5 K/uL (1.8-7.7); NEUTROPHILS % (AUTO) 64.7 % (42.2-75.2); PLATELET COUNT (AUTO) 244 K/uL (140-450); RED BLOOD CELL COUNT(AUTO) 4.66 MIL/uL (4.20-5.40); RED CELL DISTRIBUTION WIDTH 14.9 % (11.6-13.7)
[2023-04-01 07:14] LABS: ANION GAP 11.7 (8-16); CALCIUM 9.3 mg/dL (8.5-10.1); CARBON DIOXIDE 24.6 mmol/L (21-32); CHLORIDE 105 mmol/L (98-107); CREATININE 0.5 mg/dL (0.6-1.3); GLUCOSE 124 mg/dL (74-106); POTASSIUM 3.3 mmol/L (3.5-5.1); SODIUM SERUM 138 mmol/L (136-145); UREA NITROGEN, BLOOD 9 mg/dL (7-18)
[2023-04-01] MEDS ORDERED: POTASSIUM CHLORIDE 10 MEQ TABER PO SCH (08:18)
[2023-04-01] MEDS ORDERED: POTASSIUM CHLORIDE 20% 40 MEQ/15 ML UDC PO SCH (08:20)
[2023-04-01] MEDS: DOCUSATE SODIUM 100 MG GELCAP PO SCH (08:50)
[2023-04-01] MEDS: ENOXAPARIN 40 MG/0.4 ML SYR SUBQ SCH (08:51)
[2023-04-01] MEDS ORDERED: SKINTEGRITY HYDROGEL TP SCH (09:00)
[2023-04-01] MEDS ORDERED: LACTULOSE 20 GM/30 ML UDC PO SCH ×2 (10:30→12:00)
[2023-04-01] MEDS ORDERED: LEVO750T75 PO (11:01)
[2023-04-01] MEDS ORDERED: FOAM DRESSING TP SCH (13:00)
== END 2023-04-01 16:35 | DRG 177 ==
LOC: MED 11:13 → MTU 13:40
PROVIDERS: ADMIT Internal Medicine; ATTEND Internal Medicine
DX: J69.0 Pneumonitis due to inhalation of food and vomit (principal); G93.41 Metabolic encephalopathy; R65.10 Systemic inflammatory response syndrome (SIRS) of non-infectious origin without acute organ dysfunction; R56.9 Unspecified convulsions; G80.9 Cerebral palsy, unspecified; Z20.822 Contact with and (suspected) exposure to COVID-19; Z88.2 Allergy status to sulfonamides; Z88.8 Allergy status to other drugs, medicaments and biological substances; Z79.899 Other long term (current) drug therapy
CPT/HCPCS: 36415; 36600; 70450; 71045; 80048; 80053; 81001; 82140; 82550; 82803; 83605; 83880; 84484; 85025; 85610; 85730; 87040; 87081; 87086; 93005; 94640; 96374; 99285; J0456; J0696; J1650; J2060; J2543; J7060; J7644